=== PATIENT | male | born 1965 | race Caucasian/White ===

== ENCOUNTER 2020-06-16 16:32 | Emergency (ER) | payer SELFPAY ==
--- NOTE | 2020-06-16 16:43 | NUR.NOTE ---
Nursing Note: Entered in error. Wrong name given to Access. Toshia Mckinnon
== END 2020-06-16 16:41 | disposition other institution (70) ==
LOC: ER 17:17
DX: R69 Illness, unspecified (principal)

== ENCOUNTER 2021-02-20 20:51 | Outpatient (REF) | payer BC, SELFPAY ==
[2021-02-20 14:23] LABS: Abs Immature Grans 0.07 10^3/uL (0.0-0.06); Absolute Basophil Count 0.06 10^3/uL (0.0-0.2); Absolute Eosinophil Count 0.12 10^3/uL (0.0-0.7); Absolute Lymphocyte Count 3.29 10^3/uL (1.2-3.4); Absolute Monocyte Count 0.72 10^3/uL (0.1-0.8); Absolute Neutrophil Count 5.63 10^3/uL (1.2-6.7); Basophils % 0.6; Eosinophils % 1.2; HCT 48.9 % (40.0-50.0); HGB 16.1 g/dL (13.5-17.5); Immature Grans % 0.7; Lymphocytes % 33.3; MCHC 32.9 % (32.0-36.0); MPV 11.8 fL (8.0-11.0); Monocytes % 7.3; Neutrophils % 56.9; Nucleated RBC 0 %; Platelet Count 229 10^3/uL (130-400); RDW 12.7 % (11.8-14.1); RDW-SD 44.3 fL; WBC 9.89 10^3/uL (4.4-10.8)
[2021-02-20 14:43] LABS: Anion Gap 10.8 mmol/L (3-11); BUN 17 mg/dL (7-18); CO2 28.2 mmol/L (21.0-32.0); CREATININE 1.1 mg/dL (0.70-1.30); Calcium 9.1 mg/dL (8.5-10.1); Calculated LDL 113 mg/dL (<100); Chloride 104 mmol/L (98-107); Cholesterol 193 mg/dL (<200); Glucose 101 mg/dL (74-106); HDL Cholesterol 27 mg/dL (40-60); Sodium 143 mmol/L (136-145); Triglyceride 267 mg/dL (<150)
== END 2021-02-20 20:52 | disposition home or self-care (01) ==
LOC: NCHCN 20:51
PROVIDERS: Visit Provider Registered Nurse
DX: Z00.00 Encounter for general adult medical examination without abnormal findings (principal); R03.0 Elevated blood-pressure reading, without diagnosis of hypertension
CPT/HCPCS: 80048; 80061; 85025

== ENCOUNTER 2021-03-27 09:55 | Outpatient (REF) | payer BC, SELFPAY ==
[2021-03-27 15:16] LABS: Anion Gap 10.7 mmol/L (3-11); BUN 13 mg/dL (7-18); CO2 28.3 mmol/L (21.0-32.0); Calcium 9.2 mg/dL (8.5-10.1); Chloride 105 mmol/L (98-107); Glucose 101 mg/dL (74-106); Sodium 144 mmol/L (136-145)
== END 2021-03-27 09:56 | disposition home or self-care (01) ==
LOC: NCHCN 09:55
PROVIDERS: Visit Provider Registered Nurse
DX: I10 Essential (primary) hypertension (principal); R42 Dizziness and giddiness
CPT/HCPCS: 80048

== ENCOUNTER 2021-05-08 09:36 | Outpatient (REF) | payer BC, SELFPAY ==
[2021-05-08 14:39] LABS: Anion Gap 10.7 mmol/L (3-11); BUN 12 mg/dL (7-18); CO2 27.3 mmol/L (21.0-32.0); Chloride 104 mmol/L (98-107); Glucose 114 mg/dL (74-106); Sodium 142 mmol/L (136-145)
== END 2021-05-08 09:37 | disposition home or self-care (01) ==
LOC: NCHCN 09:36
PROVIDERS: Visit Provider Registered Nurse
DX: I10 Essential (primary) hypertension (principal)
CPT/HCPCS: 80048

== ENCOUNTER 2022-08-19 16:46 | Outpatient (REF) | payer BC, SELFPAY ==
[2022-08-19 21:44] LABS: ALT 61 U/L (16-63); AST 27 U/L (15-37); Alkaline Phosphatase 97 U/L (46-116); Anion Gap 7.7 mmol/L (3-11); BUN 14 mg/dL (7-18); Bilirubin, Total 0.9 mg/dL (0.2-1.0); CO2 29.3 mmol/L (21.0-32.0); CREATININE 1.4 mg/dL (0.70-1.30); Calcium 8.9 mg/dL (8.5-10.1); Calculated LDL 83 mg/dL (<100); Chloride 101 mmol/L (98-107); Cholesterol 152 mg/dL (<200); Estimated GFR 59.36 (mL/min/1.73m2); Glucose 95 mg/dL (74-106); HDL Cholesterol 28 mg/dL (40-60); Sodium 138 mmol/L (136-145); Total Protein 7.7 g/dL (6.4-8.2); Triglyceride 207 mg/dL (<150)
== END 2022-08-19 16:47 | disposition home or self-care (01) ==
LOC: NCHCN 16:46
PROVIDERS: Visit Provider Registered Nurse
DX: I10 Essential (primary) hypertension (principal); E78.5 Hyperlipidemia, unspecified
CPT/HCPCS: 80053; 80061